=== PATIENT | female | born 1985 | race Caucasian/White ===

== ENCOUNTER 2016-03-13 11:12 | Emergency (ER) | payer SELFPAY ==
[2016-03-13] MEDS ORDERED: CEPHALEXIN500 M2 PO (11:18)
== END 2016-03-13 11:28 | disposition home or self-care (01) ==
LOC: ED 11:12
DX: K08.89 Other specified disorders of teeth and supporting structures (principal); K02.9 Dental caries, unspecified; L30.9 Dermatitis, unspecified

== ENCOUNTER 2023-08-11 14:30 | Emergency (ER) | payer MEDICAID ==
[~2023-08-11 14:30] MED LIST: CEPHALEXIN500 M2 PO
[2023-09-30 10:54] LABS: ALT/SGPT 12 U/L (0-55); AST-SGOT 15 U/L (5-34); CALCIUM 9.7 mg/dL (8.3-10.5); CARBON DIOXIDE 24 mmol/L (22-29); GLUCOSE 95 mg/dL (65-105); SODIUM 138 mmol/L (136-145); TOTAL BILIRUBIN 0.4 mg/dL (0.2-1.2); TOTAL PROTEIN 6.9 g/dL (6.4-8.3); TROPONIN-I < 0.030 ng/mL (0.00-0.033)
[2023-09-30 11:40] LABS: BASO # 0.03 K/mm3 (0.02-0.10); D-DIMER 0.18 mg/L FEU (0.15-0.50); EOS # 0.13 K/mm3 (0.04-0.40); EOS % 1.1 % (1.0-5.0); HEMATOCRIT 47.5 % (37.0-47.0); HEMOGLOBIN 15.7 g/dL (12.5-16.0); LYMPH# 2.68 K/mm3 (1.50-4.00); MEAN CELL VOLUME 88 fl (78-100); MEAN CORPUSCULAR HEMOGLOBIN 29 pg (27-31); MEAN CORPUSCULAR HGB CONC 33 g/dL (33-37); MEAN PLATELET VOLUME 8.4 fl (7.4-10.4); MONO # 0.51 K/mm3 (0.20-0.80); NEU # 8.83 K/mm3 (1.40-6.50); PLATELET COUNT 297 K/mm3 (130-400); RED BLOOD COUNT 5.41 M/mm3 (4.10-5.30); WHITE BLOOD COUNT 12.2 K/mm3 (4.8-10.8)
== END 2023-08-11 17:00 | disposition home or self-care (01) ==
LOC: ED 14:30
PROVIDERS: Nurse Practitioner
DX: F41.9 Anxiety disorder, unspecified (principal)

== ENCOUNTER 2024-02-01 12:28 | Emergency (ER) | payer MEDICAID ==
[~2024-02-01] VITALS: Ht 154.9 cm; Wt 73.2 kg
[2024-02-01] MEDS ORDERED: Acetaminophen 500 MG TAB PO ONE (13:00)
[2024-02-01] MEDS ORDERED: Ketorolac 30 MG/ML VIAL IM ONE (13:00)
[2024-02-01] MEDS ORDERED: TRAMADOL 50 MG TAB PO (13:44)
[2024-02-01 13:47] VITALS: BP 116/82
== END 2024-02-01 13:48 | disposition home or self-care (01) ==
LOC: ED 12:28
DX: K08.89 Other specified disorders of teeth and supporting structures (principal); E66.9 Obesity, unspecified; F17.210 Nicotine dependence, cigarettes, uncomplicated
CPT/HCPCS: J1885